=== PATIENT | female | born 2000 | race Caucasian/White ===

== ENCOUNTER 2024-03-25 10:00 | Inpatient (IN) ==
[2024-03-25] MEDS ORDERED: Lidocaine 1% VIAL 10 MG/ML 30 ML VIAL INJ PRN (10:44)
[2024-03-25] MEDS ORDERED: Lactated Ringers 1000 ml BAG 1,000 ML IV ONE ×2 (10:44→20:12)
[2024-03-25] MEDS: Lactated Ringers 1000 ml BAG 1,000 ML IV SCH (12:10)
[2024-03-25] MEDS: Buffered Lidocaine 1% SYRIN 1 ml INTRADERM ONE (12:10)
[2024-03-25 12:35] LABS: ABS Lymphocytes 1.2 10^3/uL (1.0-4.8); ABS Monocytes 0.7 10^3/uL (0.0-0.9); ABS Neutrophils 5.9 10^3/uL (1.5-7.6); Eosinophil % 0.3 %; Hematocrit 35.8 % (35-45); Hemoglobin 12.1 g/dL (11.5-14.3); Lymphocyte % 15.6 %; Mean Corpuscular Hemoglobin 30.8 pg (27-33); Mean Corpuscular Hgb Conc 33.8 g/dL (31-36); Mean Corpuscular Volume 91.1 fL (80-97); Mean Platelet Volume 9.2 fL (7.5-11.2); Nucleated Red Blood Cells % 0.1 %/100WBC (0.0-0.8); Platelet Count 218 10^3/uL (150-450); Red Blood Count 3.93 10^6/uL (3.63-4.92); Red Cell Distribution Width 13.8 % (12-17); White Blood Count 7.9 10^3/uL (3.8-11.8)
[2024-03-25] MEDS: Oxytocin in LR 20,000 MILLI.UNIT/1,000 ML BAG IV SCH (12:43)
[2024-03-25 15:31] LABS: Urine Benzodiazepine Screen None Detected (None Detect); Urine Cannabinoids Screen None Detected (None Detect); Urine Opiates Screen None Detected (None Detect)
[2024-03-25] MEDS ORDERED: Lidocaine 1.5% EPI 1:200,000 30 ML SDV ONE (19:15)
[2024-03-25] MEDS: OBEPIDURAL (200 ML) 200 ML EPIDURAL ONE (20:00)
[2024-03-25] MEDS ORDERED: Sodium Citrate/Citric Acid LIQ 15 ML UDC PO PRN (20:12)
[2024-03-25] MEDS ORDERED: Phenylephrine 40 mcg/mL 10mL (400mcg) SYRINGE IV PUSH PRN ×2 (20:12)
[2024-03-25] MEDS ORDERED: OBEPIDURAL (200 ML) 200 ML EPIDURAL SCH (21:00)
[2024-03-25] MEDS ORDERED: Lactated Ringers 1000 ml BAG 1,000 ML IV SCH (21:00)
[2024-03-25 21:28] LABS: Urine Appearance Clear; Urine Bilirubin Negative (Negative); Urine Blood 1+ (Negative); Urine Color Light-Yellow; Urine Glucose Negative (Negative); Urine Ketones Negative (Negative); Urine Nitrite Negative (Negative); Urine Protein Trace (Negative); Urine Specific Gravity 1.021 (1.002-1.030); Urine Urobilinogen Negative (Negative); Urine pH 6.5 (5.0-8.0)
[2024-03-25 21:38] LABS: Urine Bacteria 1+ /HPF (Absent); Urine Red Blood Cell 3+(>10/hpf) /HPF (0-Trace); Urine Squamous Epithelial Cell Present /HPF (Absent); Urine White Blood Cell 2+(11-20/hpf) /HPF (0-Trace)
[2024-03-25] MEDS ORDERED: Glycerin ADULT 2.4 gm SUPP PR PRN (22:39)
[2024-03-25] MEDS ORDERED: RHO D Immune Globulin (HUMAN) 300 MCG = 1,500 I.U. INJ IM PRN (22:39)
[2024-03-25] MEDS: Witch Hazel PAD JAR TOPICAL PRN (23:29)
[2024-03-25] MEDS: Dibucaine 1% OINT 28.35 GM TUBE PR PRN (23:29)
[2024-03-26 07:08] LABS: ABS Basophils 0.1 10^3/uL (0.0-0.1); ABS Eosinophils 0.1 10^3/uL (0.0-0.5); ABS Lymphocytes 1.7 10^3/uL (1.0-4.8); ABS Neutrophils 7.1 10^3/uL (1.5-7.6); Eosinophil % 0.5 %; Hematocrit 35.2 % (35-45); Mean Corpuscular Hemoglobin 31.1 pg (27-33); Mean Corpuscular Volume 91.4 fL (80-97); Mean Platelet Volume 9.4 fL (7.5-11.2); Platelet Count 197 10^3/uL (150-450); Red Blood Count 3.85 10^6/uL (3.63-4.92); Red Cell Distribution Width 13.6 % (12-17); White Blood Count 9.9 10^3/uL (3.8-11.8)
[2024-03-26] MEDS: Oxytocin in LR 20,000 MILLI.UNIT/1,000 ML BAG IV SCH (12:55)
[2024-03-27 08:33] VITALS: BP 125/85
[2024-03-27 11:49] LABS: Varicella IgG Antibody Index 0.9; Varicella-Zoster IgG Antibody Equivocal
== END 2024-03-27 09:35 | disposition home or self-care (01) | DRG 560 ==
LOC: MCHOBOUT 10:00 → MCHOB 10:34